=== PATIENT | female | born 1985 | race Hispanic/Latino ===

== ENCOUNTER → 2025-06-24 | Outpatient (CLI) | payer BC ==
[~2025-06-24] MED LIST: ACET1TAB12 PO; DOCU-116 PO; IBUP-1493 PO; LIDOP TP
== END | disposition home or self-care (01) ==
LOC: RAH 10:00
PROVIDERS: ATTEND Obstetrics & Gynecology
DX: Z12.31 Encounter for screening mammogram for malignant neoplasm of breast (principal)
CPT/HCPCS: 77067